=== PATIENT | female | born 1985 | race Caucasian/White ===

== ENCOUNTER 2020-03-08 20:49 | Emergency (ER) | payer BC ==
[~2020-03-08] VITALS: Ht 149.9 cm; Wt 68.0 kg
[2020-03-08 21:18] VITALS: BP_SYST 143
[2020-03-08 22:01] LABS: BASOPHILS # (AUTO) 0.1 K/uL (0.0-0.2); BASOPHILS % (AUTO) 0.7 % (0.0-2.0); EOSINOPHILS % (AUTO) 0.4 % (0.0-4.0); HEMATOCRIT 43.8 % (36-48); HEMOGLOBIN 14.5 g/dL (12.0-16.0); LYMPHOCYTES # (AUTO) 1.7 K/uL (1.0-5.5); LYMPHOCYTES % (AUTO) 22.9 % (20.5-51.5); MEAN CORPUSCULAR HEMOGLOBIN 28 pg (27-31); MEAN CORPUSCULAR HGB CONC 33 % (32-36); MEAN CORPUSCULAR VOLUME 85 fL (79.0-98.0); MONOCYTES # (AUTO) 0.5 K/uL (0.0-1.0); MONOCYTES % (AUTO) 6.7 % (1.7-9.3); NEUTROPHILS # (AUTO) 5.1 K/uL (1.8-7.7); NEUTROPHILS % (AUTO) 69.3 % (40.0-70.0); PLATELET COUNT (AUTO) 232 K/uL (130-430); RED BLOOD CELL COUNT(AUTO) 5.14 MIL/uL (4.2-6.2); RED CELL DISTRIBUTION WIDTH 12.9 % (9.0-15.0); WHITE BLOOD COUNT (AUTO) 7.4 K/uL (4.8-10.8)
[2020-03-09 00:09] VITALS: BP_SYST 143
== END 2020-03-09 00:07 | disposition home or self-care (01) ==
LOC: SED 20:49
DX: O03.9 Complete or unspecified spontaneous abortion without complication (principal)
CPT/HCPCS: 36415; 76801; 76817; 84702-TC; 85025; 86900; 86901; 99284

== ENCOUNTER 2022-02-07 17:41 | Emergency (ER) | payer OTHER, BC ==
[~2022-02-07] VITALS: Ht 149.9 cm; Wt 77.1 kg
[2022-02-07 17:51] VITALS: BP_SYST 140
[2022-02-07] MEDS ORDERED: IBUPROFEN 600 MG TABLET PO ONE (18:15)
[2022-02-07 18:40] VITALS: BP_SYST 132
[2022-02-07] MEDS ORDERED: NAPR-690 PO (20:11)
== END 2022-02-07 20:15 | disposition home or self-care (01) ==
LOC: SED 17:41
DX: S83.91XA Sprain of unspecified site of right knee, initial encounter (principal); S20.219A Contusion of unspecified front wall of thorax, initial encounter; V49.40XA Driver injured in collision with unspecified motor vehicles in traffic accident, initial encounter; Y93.89 Activity, other specified; Y92.89 Other specified places as the place of occurrence of the external cause; Y99.8 Other external cause status
CPT/HCPCS: 71045; 73564; 81025; 99284